=== PATIENT | female | born 1980 | race African-American/Black ===

== ENCOUNTER 2018-11-25 01:41 | Inpatient (IN) | payer MEDICAID ==
[~2018-11-25] VITALS: Ht 152.4 cm; Wt 54.4 kg
[2018-11-25 02:04] LABS: BASOPHILS 0.1 % (0-2); EOSINOPHILS 0.1 % (0-7); HEMATOCRIT 39.4 % (36.0-48.0); HEMOGLOBIN 13.5 g/dL (12-16); IMMATURE GRANULOCYTES 0.1 % (0-5); LYMPHOCYTES 5.1 % (15-50); MCH 29.3 pg (26.0-34.0); MCHC 34.3 g/dL (31.0-37.0); MCV 85.7 fL (80.0-100.0); MEAN PLATELET VOLUME 9.2 fL (7.4-10.4); NEUTROPHILS 92.6 % (40-80); PLATELET COUNT 199 10x3/uL (130-400); RDW 13.1 % (11.5-14.5)
[2018-11-25 02:18] LABS: ALBUMIN 3.3 g/dL (3.4-5.0); ALKALINE PHOSPHATASE 84 U/L (46-116); ALT (SGPT) 16 U/L (10-68); BILIRUBIN - TOTAL 0.58 mg/dL (0.2-1.3); CALC OSMOLALITY 275 mosm/kg (275-300); CALCIUM 8.8 mg/dL (8.5-10.1); CARBON DIOXIDE 26.1 mmol/L (21.0-32.0); CHLORIDE - SERUM 97 mmol/L (98-107); CREATININE - SERUM 0.7 mg/dL (0.6-1.3); GLUCOSE 283 mg/dL (74-106); POTASSIUM - SERUM 3.6 mmol/L (3.5-5.1); PROTEIN - SERUM 7.5 g/dL (6.4-8.2); SODIUM 134 mmol/L (136-145); UREA NITROGEN 8 mg/dL (7-18); eGFR NON AFRICAN AMERICAN > 90 mL/min (90-120)
[2018-11-25 02:21] LABS: AMYLASE - SERUM 44 U/L (25-115); LIPASE 106 U/L (73-393); TROPONIN-I < 0.017 ng/mL (0.000-0.060)
[2018-11-25 02:48] LABS: APPEARANCE HAZY (CLEAR); BILIRUBIN NEGATIVE (NEGATIVE); COLOR YELLOW (YELLOW); GLUCOSE 1000 mg/dL (NEGATIVE); KETONE SMALL mg/dL (NEGATIVE); NITRITE POSITIVE (NEGATIVE); PROTEIN NEGATIVE (NEGATIVE); UROBILINOGEN NORMAL (NORMAL)
[2018-11-25 02:53] LABS: HCG SERUM NEGATIVE (NEGATIVE)
[2018-11-25 02:53] LABS: BACTERIA MANY /hpf (NONE SEEN); EPITHELIAL CELLS RARE /hpf (0-5); RED CELLS - URINE 0-5 /hpf (0-5)
--- NOTE | 2018-11-25 03:08 | NUR ---
PT LEFT ED VIA STRETCHER FOR CT.
--- NOTE | 2018-11-25 03:26 | NUR ---
PT RETURNED FROM CT VIA STRETCHER.
[2018-11-25 03:46] VITALS: BP 121/67
--- NOTE | 2018-11-25 05:10 | NUR ---
PT ARRIVED ON UNIT VIA WHEELCHAIR, ESCORTED BY ER STAFF AND SPOUSE. ORIENTED TO ROOM AND CALL LIGHT. POSITIONED IN BED FOR COMFORT. STARTED IV FLUIDS PER ORDER. PROVIDED WITH SANDWICH TRAY AND ICE WATER, SHE IS VERY HUNGRY. WILL MONITOR FOR NEEDS.
--- NOTE | 2018-11-25 05:30 | NUR ---
ELEVATED TEMP OF 101.3 AT THIS CHECK. GAVE TYLENOL 650 MG PO PER PRN ORDER. FSBS 225 THIS CHECK REQUIRING COVERAGE WITH 4 UNITS OF REGULAR INSULIN PER SLIDING SCALE.
[2018-11-25 05:34] VITALS: BP 105/70; BMI 23.4
--- NOTE | 2018-11-25 05:50 | NUR ---
ADMISSION ASSESSMENT AND HISTORY COMPLETE.
[2018-11-25 08:07] VITALS: BP 100/70
[2018-11-25 14:01] VITALS: BP 116/76
--- NOTE | 2018-11-25 15:39 | NUR ---
TEMP BACK DOWN TO 98.7. AT THIS TIME. PATIENT FEELING BETTER. IV INTACT. CALL LIGHT WITHIN REACH. FAMILY AT BEDSIDE.
[2018-11-25 15:58] LABS: CKMB 0.2 U/L (0.0-3.6); CREATINE KINASE 37 UL (21-215)
[2018-11-25 16:00] LABS: TROPONIN-I < 0.017 ng/mL (0.000-0.060)
[2018-11-25 17:28] VITALS: BP 96/65
--- NOTE | 2018-11-25 17:28 | NUR ---
PATIENT IN BED WITH IV INTACT. NO COMPLAINTS OR SIGNS OF DISTRESS. FAMILY AT BEDSIDE. CALL LIGHT WITHIN REACH.
--- NOTE | 2018-11-25 19:00 | NUR ---
BEDSIDE REPORT RECEIVED AND CARE OF PT ASSUMED. PT LYING IN HIGH MAGANA'S POSITION VISITING WITH SPOUSE. IV TO LEFT AC PATENT WITH NS INFUSING AT 100 ML/HR. WILL MONITOR CLOSELY FOR NEEDS.
--- NOTE | 2018-11-25 19:20 | NUR ---
GAVE SANDWICH TRAY GIVEN PER REQUEST. WILL CONTINUE TO MONITOR FOR NEEDS.
--- NOTE | 2018-11-25 19:58 | NUR ---
HS MEDICATIONS GIVEN. FSBS 218 THIS CHECK REQUIRING COVERAGE WITH 4 UNITS OF REGULAR INSULIN PER SLIDING SCALE.
[2018-11-25 20:00] VITALS: BP 91/54
--- NOTE | 2018-11-25 20:15 | NUR ---
GAVE TURKEY SANDWICH TRAY AND DIET COLA FOR HS SNACK.
[2018-11-25 22:18] LABS: CREATINE KINASE 35 UL (21-215)
[2018-11-25 22:19] LABS: TROPONIN-I < 0.017 ng/mL (0.000-0.060)
[2018-11-26] VITALS: BP 97/63
[2018-11-26 04:00] VITALS: BP 116/72
[2018-11-26 04:04] LABS: BASOPHILS 0.2 % (0-2); EOSINOPHILS 0.5 % (0-7); HEMATOCRIT 35.1 % (36.0-48.0); HEMOGLOBIN 11.9 g/dL (12-16); IMMATURE GRANULOCYTES 0.2 % (0-5); LYMPHOCYTES 11.5 % (15-50); MCH 29.1 pg (26.0-34.0); MCHC 33.9 g/dL (31.0-37.0); MCV 85.8 fL (80.0-100.0); MEAN PLATELET VOLUME 9.7 fL (7.4-10.4); NEUTROPHILS 79.6 % (40-80); PLATELET COUNT 164 10x3/uL (130-400); RBC 4.09 10x6/uL (4.00-5.40); RDW 13.1 % (11.5-14.5)
[2018-11-26 04:25] LABS: WBC 5.8 10x3/uL (4.8-10.8)
[2018-11-26 04:37] LABS: ALBUMIN 2.6 g/dL (3.4-5.0); ALKALINE PHOSPHATASE 69 U/L (46-116); ALT (SGPT) 16 U/L (10-68); BILIRUBIN - TOTAL 0.31 mg/dL (0.2-1.3); CALCIUM 8.2 mg/dL (8.5-10.1); CARBON DIOXIDE 24.8 mmol/L (21.0-32.0); CHLORIDE - SERUM 105 mmol/L (98-107); CKMB 0.2 U/L (0.0-3.6); CREATINE KINASE 38 UL (21-215); MAGNESIUM - SERUM 1.8 mg/dL (1.8-2.4); PHOSPHOROUS 2.3 mg/dL (2.5-4.9); POTASSIUM - SERUM 3.1 mmol/L (3.5-5.1); PROTEIN - SERUM 6.3 g/dL (6.4-8.2); SODIUM 139 mmol/L (136-145); UREA NITROGEN 10 mg/dL (7-18)
[2018-11-26 04:46] LABS: CALC OSMOLALITY 282 mosm/kg (275-300); CREATININE - SERUM 0.5 mg/dL (0.6-1.3); GLUCOSE 209 mg/dL (74-106); TROPONIN-I < 0.017 ng/mL (0.000-0.060); eGFR NON AFRICAN AMERICAN > 90 mL/min (90-120)
--- NOTE | 2018-11-26 06:45 | NUR ---
MAG, POTASSIUM AND PHOS ALL REPLENISHED PER THE ELECTROLYTE PROTOCOL.
[2018-11-26 08:34] VITALS: BP 112/76
[2018-11-26 13:35] VITALS: Ht 152.4 cm; Wt 54.4 kg
[2018-11-26 13:48] VITALS: BP 107/70
--- NOTE | 2018-11-26 14:42 | NUR ---
RESTING,WITHOUT DISTRESS.
[2018-11-26 17:18] VITALS: BP 114/82
[2018-11-26 21:15] VITALS: BP 127/78
--- NOTE | 2018-11-26 23:09 | NUR ---
DURING 2099 MEDICATION PASS, COMPLAINED OF NOT BEING ABLE TO SLEEP THE PAST FEW NIGHTS AND HAVING A HEADACHE, EKATERINA NOTIFIED AND GAVE VERBAL ORDER FOR BENADRYL 50MG IV TIMES ONE NOW TO HELP WITH ROBLES AND ALLERGY S/S. MEDICATION GIVEN ALONG WITH SCHEDULED MEDS, AT THIS TIME, RESTING COMFORTABLY WITH FAMILY AT BEDSIDE. DENIES ANY FURTHER PAIN AT THIS TIME.
--- NOTE | 2018-11-27 03:47 | NUR ---
I have reviewed this patient and I concur with the Shift Assessment completed by the Licensed Practical Nurse today this shift.
[2018-11-27 05:36] VITALS: BP 128/76
--- NOTE | 2018-11-27 05:49 | NUR ---
RESTED WELL THIS SHIFT, FAMILY MEMBER STAYED IN ROOM. REQUESTED SOMETHING FOR HEADACHE AT 0505, TYLENOL 650MG GIVEN PER ODERS, AT THIS TIME SHE HAS NO FURTHER COMPLAINTS. WILL NOTE ANY CHANGE.
[2018-11-27 06:52] LABS: BASOPHILS 0.2 % (0-2); EOSINOPHILS 0.8 % (0-7); HEMATOCRIT 36.5 % (36.0-48.0); HEMOGLOBIN 12.3 g/dL (12-16); IMMATURE GRANULOCYTES 0.2 % (0-5); LYMPHOCYTES 17.2 % (15-50); MCH 29.1 pg (26.0-34.0); MCHC 33.7 g/dL (31.0-37.0); MCV 86.5 fL (80.0-100.0); MEAN PLATELET VOLUME 9.9 fL (7.4-10.4); MONOCYTES 9.4 % (2-11); NEUTROPHILS 72.2 % (40-80); PLATELET COUNT 176 10x3/uL (130-400); RBC 4.22 10x6/uL (4.00-5.40); RDW 13.3 % (11.5-14.5); WBC 6.5 10x3/uL (4.8-10.8)
--- NOTE | 2018-11-27 07:05 | NUR ---
PATIENT RECIEVED FROM PREVIOUS SHIFT RESTING IN BED, DENIES NEEDS, NO DISTRESS. PATIENT ADMITTED FOR UTI BUT IS ALSO C/O SINUS CONGESTION. CL IN REACH
[2018-11-27 07:11] LABS: ALBUMIN 2.8 g/dL (3.4-5.0); ALKALINE PHOSPHATASE 102 U/L (46-116); BILIRUBIN - TOTAL 0.22 mg/dL (0.2-1.3); CALCIUM 8.1 mg/dL (8.5-10.1); CARBON DIOXIDE 23.1 mmol/L (21.0-32.0); CHLORIDE - SERUM 104 mmol/L (98-107); CREATININE - SERUM 0.5 mg/dL (0.6-1.3); GLUCOSE 190 mg/dL (74-106); MAGNESIUM - SERUM 1.8 mg/dL (1.8-2.4); POTASSIUM - SERUM 3.3 mmol/L (3.5-5.1); PROTEIN - SERUM 7.1 g/dL (6.4-8.2); SODIUM 139 mmol/L (136-145); eGFR NON AFRICAN AMERICAN > 90 mL/min (90-120)
[2018-11-27 07:12] LABS: ALT (SGPT) 29 U/L (10-68); CALC OSMOLALITY 280 mosm/kg (275-300); UREA NITROGEN 7 mg/dL (7-18)
[2018-11-27 08:59] VITALS: BP 122/90
[2018-11-27 14:23] VITALS: BP 137/86
--- NOTE | 2018-11-27 16:37 | NUR ---
IV REMOVED FROM LEFT FOREARM DUE TO LEAKING. RESITED TO LEFT HAND X1 STICK WITH 22G, PATIENT TOLERATED WELL
--- NOTE | 2018-11-27 16:56 | MORECARE ---
CASE MANAGEMENT DISCHARGE SUMMARY PATIENT: ANTHONY LÓPEZ UNIT: [id number] ADM DATE: 11/25/18 AGE: 38 : 80 SEX: F ROOM/BED: D.2224 AUTHOR: ASH ANGULO PHYSICIAN: REFERRING PHYSICIAN: ALEM LARA MD DATE OF SERVICE: 11/27/18 Discharge Plan Patient Name: ANTHONY LÓPEZ Facility: [facility]:[place] : 1980 Planned Disposition: Home Anticipated Discharge Date: Discharge Date: Expected LOS: Initial Reviewer: [email or web address] Initial Review Date: 11/27/2018 Generated: 11/27/18 5:55 pm Comments DCP- Discharge Planning Updated by [id number]: Mer Valente on 11/27/18 3:[address] Patient Name: ANTHONY LÓPEZ Admission Status: ER Accout number: [id number] Admission Date: 11-25-2018 : 1980 Admission Diagnosis:URINARY TRACT INFECTION, SITE NOT SPECIFIED Attending: ALEM LARA Current LOS: 2 Anticipated DC Date: Planned Disposition: Home Primary Insurance: MEDICAID [place] PEND[place] Discharge Planning Comments: CM MET WITH PATIENT AND HER FAMILY ABOUT DC PLANNING/NEEDS. PATIENT STATES ONLY NEED IS SHE DOESN'T HAVE A GLUCOMETER. CM WILL GIVE HER INFO ON WHERE TO PURCHASE A GLUCOMETER. CM TO FOLLOW AND ASSSIT. Supervising Bailiff: Mer Valente DCPIA - Discharge Planning Initial Assessment Updated by [email or web address]: Mer Valente on 11/27/18 4:49 pm * Is the patient Alert and Oriented? Yes * PCP NONE * Pharmacy [facility] * Preadmission Environment Home with Family * ADLs Independent * Additional services required to return to the preadmission environment? No * Can the patient safely return to the preadmission environment? Yes * Has this patient been hospitalized within the prior 30 days at any hospital? No Patient Name: ANTHONY LÓPEZ Page [id number] at 2133 All edits/amendments must be made on the electronic document DICTATION DATE: 11/27/181654 RIM TECHNICIAN: MARLY 11/27/181654 RPT#: [id number] DC DATE: STATUS: ADM IN [facility] [address] [place] [place] [address] END OF REPORT
[2018-11-27 17:51] VITALS: BP 132/92
--- NOTE | 2018-11-27 19:20 | NUR ---
IN BED WITH FAMILY AT BEDSIDE, IV TO RIGHT HAND INFUSING PER ORDERS. ABLE TO VOICE ALL NEEDS, WILL NOTE ANY CHANGE.
[2018-11-27 21:16] VITALS: BP 121/83
--- NOTE | 2018-11-28 03:56 | NUR ---
RESTED WELL THIS SHIFT. FAMILY STAYED AT BEDSIDE. VOICED NO COMPLAINTS. WILL NOTE ANY FURTHER CHANGE.
[2018-11-28 05:54] VITALS: BP 133/88
[2018-11-28 07:41] LABS: BASOPHILS 0.2 % (0-2); EOSINOPHILS 1.6 % (0-7); HEMATOCRIT 31.9 % (36.0-48.0); HEMOGLOBIN 10.7 g/dL (12-16); IMMATURE GRANULOCYTES 0.2 % (0-5); LYMPHOCYTES 20.9 % (15-50); MCH 28.8 pg (26.0-34.0); MCHC 33.5 g/dL (31.0-37.0); MCV 85.8 fL (80.0-100.0); MEAN PLATELET VOLUME 10.1 fL (7.4-10.4); MONOCYTES 13.8 % (2-11); NEUTROPHILS 63.3 % (40-80); PLATELET COUNT 170 10x3/uL (130-400); RBC 3.72 10x6/uL (4.00-5.40); RDW 13.2 % (11.5-14.5); WBC 6.1 10x3/uL (4.8-10.8)
[2018-11-28 08:01] LABS: ALBUMIN 2.4 g/dL (3.4-5.0); ALKALINE PHOSPHATASE 94 U/L (46-116); ALT (SGPT) 26 U/L (10-68); BILIRUBIN - TOTAL 0.21 mg/dL (0.2-1.3); CALC OSMOLALITY 279 mosm/kg (275-300); CARBON DIOXIDE 23.5 mmol/L (21.0-32.0); CHLORIDE - SERUM 106 mmol/L (98-107); CREATININE - SERUM 0.5 mg/dL (0.6-1.3); GLUCOSE 175 mg/dL (74-106); MAGNESIUM - SERUM 1.9 mg/dL (1.8-2.4); POTASSIUM - SERUM 3.3 mmol/L (3.5-5.1); PROTEIN - SERUM 6.5 g/dL (6.4-8.2); SODIUM 139 mmol/L (136-145); UREA NITROGEN 6 mg/dL (7-18); eGFR NON AFRICAN AMERICAN > 90 mL/min (90-120)
[2018-11-28 09:45] VITALS: BP 140/93
[2018-11-28 13:44] VITALS: BP 144/81
--- NOTE | 2018-11-28 14:43 | NUR ---
Nutrition follow-up: Diet: consistent CHO PO intake ~50-75% of meals Labs reviewed; glucose trending down Wt: 119# Pt with no questions at this time RDN following.
[2018-11-28 17:08] VITALS: BP 141/95
--- NOTE | 2018-11-28 21:10 | NUR ---
WATCHING TV QUIETLY WITH NO COMPLAITNS VOICED. RESP EVEN AND UNALBORED. NO DISTRESS NOTED. IV TO LEFT THUMB INTACT WITHOUT REDNESS OR EDEMA. UP AD VALORIE IN ROOM. CL IN REACH. AT BEDSIDE.
[2018-11-29 01:18] VITALS: BP 120/73
--- NOTE | 2018-11-29 04:00 | NUR ---
I have reviewed this patient and I concur with the Shift Assessment completed by the Licensed Practical Nurse today this shift.
[2018-11-29 05:36] VITALS: BP 134/91
[2018-11-29 06:42] LABS: ALBUMIN 2.5 g/dL (3.4-5.0); ALKALINE PHOSPHATASE 107 U/L (46-116); ALT (SGPT) 32 U/L (10-68); BILIRUBIN - TOTAL 0.22 mg/dL (0.2-1.3); CALC OSMOLALITY 280 mosm/kg (275-300); CALCIUM 8.3 mg/dL (8.5-10.1); CARBON DIOXIDE 24.8 mmol/L (21.0-32.0); CHLORIDE - SERUM 106 mmol/L (98-107); CREATININE - SERUM 0.6 mg/dL (0.6-1.3); GLUCOSE 161 mg/dL (74-106); MAGNESIUM - SERUM 1.7 mg/dL (1.8-2.4); POTASSIUM - SERUM 3.7 mmol/L (3.5-5.1); PROTEIN - SERUM 6.7 g/dL (6.4-8.2); SODIUM 141 mmol/L (136-145); UREA NITROGEN 5 mg/dL (7-18); eGFR NON AFRICAN AMERICAN > 90 mL/min (90-120)
[2018-11-29 06:43] LABS: BASOPHILS 0.2 % (0-2); EOSINOPHILS 2.9 % (0-7); HEMATOCRIT 33.7 % (36.0-48.0); HEMOGLOBIN 11.3 g/dL (12-16); IMMATURE GRANULOCYTES 0.2 % (0-5); LYMPHOCYTES 30.2 % (15-50); MCH 28.7 pg (26.0-34.0); MCHC 33.5 g/dL (31.0-37.0); MCV 85.5 fL (80.0-100.0); MEAN PLATELET VOLUME 9.8 fL (7.4-10.4); MONOCYTES 10.4 % (2-11); NEUTROPHILS 56.1 % (40-80); PLATELET COUNT 192 10x3/uL (130-400); RBC 3.94 10x6/uL (4.00-5.40); RDW 13.1 % (11.5-14.5); WBC 6.2 10x3/uL (4.8-10.8)
--- NOTE | 2018-11-29 08:45 | NUR ---
PATIENT SITTING UP IN BED WITH IV INTACT. NO COMPLAINTS OR SIGNS OF DISTRESS. FAMILY AT BEDSIDE. CALL LIGHT WITHIN REACH.
[2018-11-29 09:01] VITALS: BP 129/65
[2018-11-29] MEDS ORDERED: TESSALON PERLE100 MG PO (11:34)
[2018-11-29] MEDS ORDERED: MUCINEX600 MG PO (11:34)
[2018-11-29] MEDS ORDERED: FEXOFENADINE HC60 MG PO (11:34)
[2018-11-29] MEDS ORDERED: Nicoderm [PBKC] TRANSDERM (11:34)
[2018-11-29] MEDS ORDERED: LEVAQUIN750 MG PO ×2 (11:35→15:16)
[2018-11-29] MEDS ORDERED: GLIMEPIRIDE4 MG PO (11:36)
[2018-11-29 12:48] VITALS: BP 137/92
--- NOTE | 2018-11-29 15:15 | NUR ---
PATIENT RECIEVED DC INSTRUCTIONS. VERBALIZED UNDERSTANDING. NO QUESTIONS AT THIS TIME. IV REMOVED WITH CATH TIP INTACT. EXPLAINED TO VACUUM TECHNICIAN PRESCRIPTIONS AT [facility]. VERBALIZED UNDERSTANDING. AWAITING TRANSPORTATION FOR DC. CALL LIGHT WITHIN REACH.
[2018-11-29] MEDS ORDERED: BUTALB-APAP-CA1 EACH PO (15:18)
--- NOTE | 2018-11-29 15:27 | MORECARE ---
CASE MANAGEMENT DISCHARGE SUMMARY PATIENT: ANTHONY LÓPEZ UNIT: [id number] ADM DATE: 11/25/18 AGE: 38 : 80 SEX: F ROOM/BED: D.2224 AUTHOR: ADELEDOC PHYSICIAN: REFERRING PHYSICIAN: ALEM LARA MD DATE OF SERVICE: 11/29/18 Discharge Plan Patient Name: ANTHONY LÓPEZ Facility: [facility]:[place] : 1980 Planned Disposition: Home Anticipated Discharge Date: Discharge Date: Expected LOS: Initial Reviewer: [email or web address] Initial Review Date: 11/27/2018 Generated: 11/29/18 4:27 pm Comments DCP- Discharge Planning Updated by [email or web address]: Mer Valente on 11/29/18 2:[address] Patient Name: ANTHONY LÓPEZ Admission Status: ER Accout number: [id number] Admission Date: 11-25-2018 : 1980 Admission Diagnosis:URINARY TRACT INFECTION, SITE NOT SPECIFIED Attending: ALEM LARA Current LOS: 4 Anticipated DC Date: Planned Disposition: Home Primary Insurance: MEDICAID [place] PENDING Discharge Planning Comments: CM SPOKE WITH PATIENT ABOUT DC PLANNING. ALL MEDS ARE CALLED IN TO [facility] EXCEPT FOR LEVAQUIN AND FIORICET WITCH ARE CALLED IN TO [facility]. PATIENT NOTIFIED. CM PRICED HER MEDICATIONS FOR HER AND SPOKE WITH HER ABOUT IT, SHE STATES SHE CAN AFFORD THEM AND WILL GET THEM FILLED [facility]. SPOKE WITH HER ABOUT GLUCOMETER AND SHE SAID SHE WILL BUY ONE AT [facility] FOR LESS THAN 10 DOLLARS. CM TO FOLLOW AND ASSIST. Director Of Cardiology Service Line: Mer Valente DCP- Discharge Planning Updated by [email or web address]: Mer Valente on 11/27/18 3:[address] Patient Name: ANTHONY LÓPEZ Admission Status: ER Accout number: [id number] Admission Date: 11-25-2018 : 1980 Admission Diagnosis:URINARY TRACT INFECTION, SITE NOT SPECIFIED Attending: ALEM LARA Current LOS: 2 Anticipated DC Date: Planned Disposition: Home Primary Insurance: MEDICAID [place] PENDING Discharge Planning Comments: CM MET WITH PATIENT AND HER FAMILY ABOUT DC PLANNING/NEEDS. PATIENT STATES ONLY NEED IS SHE DOESN'T HAVE A GLUCOMETER. CM WILL GIVE HER INFO ON WHERE TO PURCHASE A GLUCOMETER. CM TO FOLLOW AND ASSSIT. Director Of Cardiology Service Line: Mer Valente DCPIA - Discharge Planning Initial Assessment Updated by [email or web address]: Mer Valente on 11/27/18 4:49 pm * Is the patient Alert and Oriented? Yes * PCP NONE * Pharmacy [facility] * Preadmission Environment Home with Family * ADLs Independent * Additional services required to return to the preadmission environment? No * Can the patient safely return to the preadmission environment? Yes * Has this patient been hospitalized within the prior 30 days at any hospital? No Last DP export: 11/27/18 3:56 p Patient Name: ANTHONY LÓPEZ Page [id number] at 1527 All edits/amendments must be made on the electronic document DICTATION DATE: 11/29/181525 FRUIT AND VEGETABLE INSPECTOR: MARLY 11/29/18 1526 RPT#: [id number] DC DATE: STATUS: ADM IN [facility] [address] [place] [address] END OF REPORT
[2018-11-29 16:39] VITALS: BP 145/90
--- NOTE | 2018-12-06 08:12 | MORECARE ---
CASE MANAGEMENT DISCHARGE SUMMARY PATIENT: ANTHONY LÓPEZ UNIT: [id number] ADM DATE: 11/25/18 AGE: 38 : 80 SEX: F ROOM/BED: D.2224 AUTHOR: ADELEDOC PHYSICIAN: REFERRING PHYSICIAN: ALEM LARA MD DATE OF SERVICE: 12/06/18 Discharge Plan Patient Name: ANTHONY LÓPEZ Facility: [facility]:[place] : 1980 Planned Disposition: Home Anticipated Discharge Date: Discharge Date: 11/29/2018 Expected LOS: 0 Initial Reviewer: [email or web address] Initial Review Date: 11/27/2018 Generated: 12/06/18 9:12 am Comments DCP- Discharge Planning Updated by [id number]: Mer Valente on 11/29/18 2:[address] Patient Name: ANTHONY LÓPEZ Admission Status: ER Accout number: [id number] Admission Date: 11-25-2018 : 1980 Admission Diagnosis:URINARY TRACT INFECTION, SITE NOT SPECIFIED Attending: ALEM LARA Current LOS: 4 Anticipated DC Date: Planned Disposition: Home Primary Insurance: MEDICAID [place] PEND[place] Discharge Planning Comments: CM SPOKE WITH PATIENT ABOUT DC PLANNING. ALL MEDS ARE CALLED IN TO [facility] EXCEPT FOR LEVAQUIN AND FIORICET WITCH ARE CALLED IN TO [facility]. PATIENT NOTIFIED. CM PRICED HER MEDICATIONS FOR HER AND SPOKE WITH HER ABOUT IT, SHE STATES SHE CAN AFFORD THEM AND WILL GET THEM FILLED [place]. SPOKE WITH HER ABOUT GLUCOMETER AND SHE SAID SHE WILL BUY ONE AT [facility] FOR LESS THAN 10 DOLLARS. CM TO FOLLOW AND ASSIST. Dairy Powder Mixer Operator: Mer Valente DCP- Discharge Planning Updated by [email or web address]: Mer Valente on 11/27/18 3:[address] Patient Name: ANTHONY LÓPEZ Admission Status: ER Accout number: [id number] Admission Date: 11-25-2018 : 1980 Admission Diagnosis:URINARY TRACT INFECTION, SITE NOT SPECIFIED Attending: ALEM LARA Current LOS: 2 Anticipated DC Date: Planned Disposition: Home Primary Insurance: MEDICAID [place]END[place] Discharge Planning Comments: CM MET WITH PATIENT AND HER FAMILY ABOUT DC PLANNING/NEEDS. PATIENT STATES ONLY NEED IS SHE DOESN'T HAVE A GLUCOMETER. CM WILL GIVE HER INFO ON WHERE TO PURCHASE A GLUCOMETER. CM TO FOLLOW AND ASSSIT. Dairy Powder Mixer Operator: Mer Valente DCPIA - Discharge Planning Initial Assessment Updated by [email or web address]: Mer Valente on 11/27/18 4:49 pm * Is the patient Alert and Oriented? Yes * PCP NONE * Pharmacy [facility] * Preadmission Environment Home with Family * ADLs Independent * Additional services required to return to the preadmission environment? No * Can the patient safely return to the preadmission environment? Yes * Has this patient been hospitalized within the prior 30 days at any hospital? No Last DP export: 11/29/18 2:27 p Patient Name: ANTHONY LÓPEZ Page [id number] at 0812 All edits/amendments must be made on the electronic document DICTATION DATE: 12/06/18811 ACADEMIC COUNSELOR: MARLY 12/06/18811 RPT#: [id number] DC DATE:11/29/18 STATUS: DIS IN [facility] [address] [place] [address] END OF REPORT
== END 2018-11-29 16:50 | disposition home or self-care (01) | DRG 871 ==
LOC: D.ER 01:41 → D.MS 04:24
PROVIDERS: Family Medicine; ADMIT Internal Medicine Nephrology; ATTEND Internal Medicine Nephrology
DX: A41.51 Sepsis due to Escherichia coli [E. coli] (principal); J18.9 Pneumonia, unspecified organism; N39.0 Urinary tract infection, site not specified; E11.65 Type 2 diabetes mellitus with hyperglycemia